=== PATIENT | female | born 1990 | race Caucasian/White ===

== ENCOUNTER → 2022-03-20 | Outpatient (CLI) | payer BC ==
[~2022-03-20] MED LIST: ABILIFY10 MG PO; BENTYL 20MG TAB20 MG PO; BUSPIRONE HCL7.5 MG PO; CARAFATE1 GM/10 ML PO; CYCLOBENZAPRINE5 MG PO; CYMBALTA60 MG PO; PROTONIX40 MG PO; TYLENOL EXTRA500 MG PO; VITAMIN B12 PO; VITAMIN D21250 MCG PO; ZOFRAN ODT 4 MG4 MG PO; ZYRTEC10 MG PO
[2022-03-20 11:20] LABS: HEMOGLOBIN 13.5 gm/dl (12.3-15.3); RED BLOOD COUNT 4.72 M/UL (4.00-5.10); WHITE BLOOD COUNT 9.8 K/UL (4.5-11.0)
== END ==
LOC: OPSV2 10:00
PROVIDERS: Obstetrics & Gynecology
DX: Z01.818 Encounter for other preprocedural examination (principal); R10.2 Pelvic and perineal pain
CPT/HCPCS: 36415; 81001; 85025; 93005

== ENCOUNTER → 2022-03-28 | Day surgery (SDC) | payer BC ==
[~2022-03-28] MED LIST changes: +COLACE100 MG PO; +NAPROXEN500 MG PO; +PERCOCET 5/325 T1 EA PO
== END | disposition home or self-care (01) ==
LOC: OR 05:20
DX: N83.02 Follicular cyst of left ovary (principal); N80.3 Endometriosis of pelvic peritoneum; R10.2 Pelvic and perineal pain; N73.6 Female pelvic peritoneal adhesions (postinfective); F31.30 Bipolar disorder, current episode depressed, mild or moderate severity, unspecified; K21.9 Gastro-esophageal reflux disease without esophagitis; Z87.891 Personal history of nicotine dependence; Z79.899 Other long term (current) drug therapy
CPT/HCPCS: 84703; J0690; J1100; J1885; J2001; J2250; J2405; J2704; J2710; J3010